=== PATIENT | male | born 1945 | race Caucasian/White ===

== ENCOUNTER 2022-01-24 10:11 | Emergency (ER) | payer MEDICARE, OTHER ==
[2022-01-24] MEDS ORDERED: Baclofen 10 MG Tab PO ONE (11:32)
[2022-01-24] MEDS ORDERED: Sodium Chloride 0.9% 1,000 ML IV ONE (11:32)
== END 2022-01-24 13:30 | disposition home or self-care (01) ==
LOC: JD.ED 10:11
DX: R55 Syncope and collapse (principal); Z91.018 Allergy to other foods; Z79.01 Long term (current) use of anticoagulants; Z79.899 Other long term (current) drug therapy; Z86.16 Personal history of COVID-19; Z90.49 Acquired absence of other specified parts of digestive tract
CPT/HCPCS: 36415; 71045; 80053; 83690; 83735; 84484; 85025; 85379; 85610; 93005; 96360; 99284; A9270; J7030